=== PATIENT | female | born 1965 | race Two or more races ===

== ENCOUNTER 2018-09-05 06:49 | Day surgery (SDC) | payer OTHER ==
[~2018-09-05 06:49] MED LIST: CARDIZEM CD180 M1 PO; PAXIL20 MG PO; ZYZAL PO
[2018-09-05] MEDS ORDERED: PERCOCET 5-3251 EACH PO (11:03)
== END 2018-09-05 13:45 | disposition home or self-care (01) ==
LOC: CIR.AMB 06:49
DX: D27.1 Benign neoplasm of left ovary (principal)